=== PATIENT | female | born 1940 | race Caucasian/White ===

== ENCOUNTER → 2024-11-15 07:19 | Outpatient (REF) | payer MEDICARE, SELFPAY | LOC: WDC 07:19 | PROVIDERS: ATTENDING PHYSICIAN Family Medicine | DX: Z12.31 Encounter for screening mammogram for malignant neoplasm of breast (principal) | CPT/HCPCS: 77063; 77067 ==

== ENCOUNTER → 2025-02-24 14:35 | Outpatient (REF) | payer MEDICARE, SELFPAY | LOC: RCS 14:35 | PROVIDERS: ATTENDING PHYSICIAN Internal Medicine Cardiovascular Disease | DX: I47.10 Supraventricular tachycardia, unspecified (principal); I36.1 Nonrheumatic tricuspid (valve) insufficiency; R94.31 Abnormal electrocardiogram [ECG] [EKG] | CPT/HCPCS: 93306 ==

== ENCOUNTER → 2025-08-25 16:39 | Outpatient (REF) | payer MEDICARE, SELFPAY | LOC: RCS 16:39 | PROVIDERS: ATTENDING PHYSICIAN Internal Medicine Cardiovascular Disease; FAMILY PHYSICIAN Family Medicine | DX: R06.09 Other forms of dyspnea (principal) | CPT/HCPCS: 71046; 93306 ==

== ENCOUNTER → 2025-11-18 07:04 | Outpatient (REF) | payer MEDICARE, SELFPAY | LOC: WDC 07:04 | PROVIDERS: ATTENDING PHYSICIAN Family Medicine | DX: Z12.31 Encounter for screening mammogram for malignant neoplasm of breast (principal) | CPT/HCPCS: 77063; 77067 ==